=== PATIENT | female | born 1975 | race Caucasian/White ===

== ENCOUNTER 2021-05-08 02:38 | Outpatient (CLI) | payer MEDICAID, SELFPAY ==
[2021-05-08 08:38] LABS: Abs Immature Grans 0.03 10^3/uL (0.0-0.06); Absolute Basophil Count 0.02 10^3/uL (0.0-0.2); Absolute Lymphocyte Count 2.25 10^3/uL (1.2-3.4); Absolute Monocyte Count 0.43 10^3/uL (0.1-0.8); Absolute Neutrophil Count 4.91 10^3/uL (1.2-6.7); Basophils % 0.3; HCT 34.5 % (36.0-46.0); HGB 11.9 g/dL (11.2-15.7); Immature Grans % 0.4; Lymphocytes % 29.5; MCH 33.4 pg (27.0-33.0); MCHC 34.5 % (32.0-36.0); MCV 96.9 fL (80-95); MPV 8.5 fL (8.0-11.0); Monocytes % 5.6; Neutrophils % 64.2; Nucleated RBC 0 %; Platelet Count 282 10^3/uL (130-400); RBC 3.56 10^6/uL (3.93-5.22); RDW 10.8 % (11.7-14.6); RDW-SD 39.2 fL; WBC 7.64 10^3/uL (4.4-10.8)
[2021-05-08 09:13] LABS: Hemoglobin A1C 5.2 % (<5.7)
[2021-05-08 10:12] LABS: ALT 19 U/L (14-59); AST 15 U/L (15-37); Alkaline Phosphatase 70 U/L (46-116); Anion Gap 9.5 mmol/L (3-11); BUN 4 mg/dL (7-18); CO2 27.5 mmol/L (21.0-32.0); CREATININE 0.8 mg/dL (0.55-1.02); Calcium 8.6 mg/dL (8.5-10.1); Calculated LDL 203 mg/dL (<100); Chloride 104 mmol/L (98-107); Cholesterol 267 mg/dL (<200); Ferritin 68 ng/mL (8-252); Glucose 94 mg/dL (74-106); HDL Cholesterol 36 mg/dL (40-60); Magnesium 1.7 mg/dL (1.8-2.4); Potassium 4.1 mmol/L (3.5-5.1); Sodium 141 mmol/L (136-145); TSH 2.33 uIU/mL (0.36-3.74); Triglyceride 142 mg/dL (<150); Vitamin B12 797 pg/mL (193-986)
[2021-05-08 10:13] LABS: Folate > 20.0 ng/mL (8.6-20.0)
[2021-05-08 10:30] LABS: C-Reactive Protein 0.45 mg/dL (0.0-0.3); FREE T4 0.74 ng/dL (0.76-1.46)
[2021-05-08 16:55] LABS: T3,Free 2.7 pg/mL (2.8-5.3)
[2021-05-09 00:48] LABS: Vitamin D 25 Total 73.6 ng/mL (30-100)
== END 2021-05-08 02:39 | disposition home or self-care (01) ==
LOC: LBO 02:38
PROVIDERS: Visit Provider Psychiatry & Neurology Psychiatry
DX: F41.1 Generalized anxiety disorder (principal); Z79.899 Other long term (current) drug therapy
CPT/HCPCS: 36415; 80048; 80061; 82306; 82607; 82728; 82746; 83036; 83735; 84075; 84439; 84443; 84450; 84460; 84481; 85025; 86140